=== PATIENT | female | born 1990 | race African-American/Black ===

== ENCOUNTER 2018-07-18 20:21 | Emergency (ER) | payer OTHER ==
[2018-07-18 22:14] VITALS: BP 104/50
== END 2018-07-18 22:14 | disposition home or self-care (01) ==
LOC: ED 20:21
DX: S81.052D Open bite, left knee, subsequent encounter (principal); Z23 Encounter for immunization; Z90.89 Acquired absence of other organs; W54.0XXD Bitten by dog, subsequent encounter